=== PATIENT | female | born 1955 | race Caucasian/White ===

== ENCOUNTER 2016-07-11 15:58 | Emergency (ER) | payer OTHER ==
[2016-07-11] MEDS ORDERED: LACTATED RINGERS 1,000 ML ONE ×2 (17:11→18:56)
[2016-07-11] MEDS ORDERED: PROCHLORPERAZINE 5 MG/ML 2 ML VIAL ONE (17:11)
[2016-07-11 19:42] LABS: ABSOLUTE NEUTROPHIL COUNT 6.1 K/mm3 (1.8-7.7); BASO % 0.4 % (0.2-1.0); EOS # 0.1 (0.0-0.5); EOS % 1.4 % (0.9-2.9); HEMATOCRIT 38.5 % (37.0-47.0); IMM NEUT% 0.5 % (0-1); LYMPH # 0.7 (1.0-4.8); LYMPH % 9.1 % (15-45); MEAN CORPUSCULAR HGB CONC 31.2 g/dl (33.0-37.0); MEAN PLATELET VOLUME 9.6 fl (7.4-10.4); MONO # 0.3 (0.0-0.8); MONO % 4.5 % (4-12); NEUT % 84.1 % (43-75); PLATELET COUNT 213 K/mm3 (130-400); RED CELL DISTRIBUTION WIDTH 13.3 % (11.5-14.5)
== END 2016-07-11 21:27 | disposition home or self-care (01) ==
LOC: ED 15:58
DX: R11.2 Nausea with vomiting, unspecified (principal); R19.7 Diarrhea, unspecified; E11.9 Type 2 diabetes mellitus without complications; Z79.84 Long term (current) use of oral hypoglycemic drugs
CPT/HCPCS: 83605; 85025; 80048; 99283 ×2; 96374; 96361 ×3; J0780; J7120 ×2